=== PATIENT | female | born 1945 | race Caucasian/White ===

== ENCOUNTER 2018-08-23 09:23 | Day surgery (SDC) | payer MEDICARE, OTHER ==
[2018-08-23] MEDS: PHENYLEPHRINE 2.5% OPHTH SOL 2ML OS (10:19)
[2018-08-23] MEDS: OFLOXACIN 0.3 % (OCUFLOX) OPTH SOL 5ML OS (10:19)
[2018-08-23] MEDS: TROPICAMIDE 1% OPHTH SOLN 2ML OS (10:19)
[2018-08-23] MEDS: PROPARACAINE 0.5% OPHTH SOL 15ML OS (10:19)
[2018-08-23] MEDS ORDERED: MIDAZOLAM INJ 2 MG/2 ML VIAL (J2250) As Ordered (11:23)
[2018-08-23] MEDS ORDERED: fentaNYL 100 MCG/2 ML INJECTION (J3010) As Ordered (11:23)
[2018-08-23] MEDS: LIDOCAINE 0.75%/EPINEPHRINE 0.025% IN BSS 1ML SYR INTRACAMERAL (OR ONLY) As Ordered (11:44)
[2018-08-23] MEDS: POVIDONE-IODINE 5% OPHTH PREP SOL 30ML As Ordered (11:44)
[2018-08-23] MEDS: BALANCED SALT IRRIGATION SOLUTION 500ML BAG (FOR OR EYE MACHINE) As Ordered (11:44)
[2018-08-23] MEDS: DUOVISC (0.50ML VISCOAT/0.55ML PROVISC) OPHTH KIT As Ordered (11:44)
[2018-08-23] MEDS: CEFUROXIME 1MG/0.1ML INTRACAMERAL INJ As Ordered (11:45)
== END 2018-08-23 12:25 | disposition home or self-care (01) ==
LOC: M SDC 09:23
DX: H25.12 Age-related nuclear cataract, left eye (principal); E78.00 Pure hypercholesterolemia, unspecified; K21.9 Gastro-esophageal reflux disease without esophagitis; R06.02 Shortness of breath; F41.9 Anxiety disorder, unspecified; E66.9 Obesity, unspecified; Z68.36 Body mass index [BMI] 36.0-36.9, adult; Z88.0 Allergy status to penicillin; Z88.2 Allergy status to sulfonamides; Z88.5 Allergy status to narcotic agent; Z88.6 Allergy status to analgesic agent; Z79.899 Other long term (current) drug therapy; Z78.0 Asymptomatic menopausal state; Z98.51 Tubal ligation status
CPT/HCPCS: 66984

== ENCOUNTER 2018-08-30 10:17 | Day surgery (SDC) | payer MEDICARE, OTHER ==
[~2018-08-30 10:17] MED LIST: MIDAZOLAM INJ 2 MG/2 ML VIAL (J2250) As Ordered; fentaNYL 100 MCG/2 ML INJECTION (J3010) As Ordered
[2018-08-30] MEDS: PROPARACAINE 0.5% OPHTH SOL 15ML OD (10:43)
[2018-08-30] MEDS: PHENYLEPHRINE 2.5% OPHTH SOL 2ML OD (10:43)
[2018-08-30] MEDS: OFLOXACIN 0.3 % (OCUFLOX) OPTH SOL 5ML OD (10:43)
[2018-08-30] MEDS: TROPICAMIDE 1% OPHTH SOLN 2ML OD (10:43)
[2018-08-30] MEDS: POVIDONE-IODINE 5% OPHTH PREP SOL 30ML As Ordered (12:33)
[2018-08-30] MEDS: BALANCED SALT IRRIGATION SOLUTION 500ML BAG (FOR OR EYE MACHINE) As Ordered (12:39)
[2018-08-30] MEDS: LIDOCAINE 0.75%/EPINEPHRINE 0.025% IN BSS 1ML SYR INTRACAMERAL (OR ONLY) As Ordered (12:39)
[2018-08-30] MEDS: DUOVISC (0.50ML VISCOAT/0.55ML PROVISC) OPHTH KIT As Ordered (12:39)
[2018-08-30] MEDS ORDERED: ONDANSETRON 4MG/2ML VIAL (J2405) IV (13:30)
== END 2018-08-30 13:25 | disposition home or self-care (01) ==
LOC: M SDC 10:17
DX: H25.11 Age-related nuclear cataract, right eye (principal); E78.00 Pure hypercholesterolemia, unspecified; K21.9 Gastro-esophageal reflux disease without esophagitis; R06.02 Shortness of breath; F41.9 Anxiety disorder, unspecified; Z88.0 Allergy status to penicillin; Z88.2 Allergy status to sulfonamides; Z88.5 Allergy status to narcotic agent; Z88.6 Allergy status to analgesic agent; Z79.899 Other long term (current) drug therapy; Z79.82 Long term (current) use of aspirin; Z78.0 Asymptomatic menopausal state; Z98.51 Tubal ligation status
CPT/HCPCS: 66984

== ENCOUNTER → 2022-07-31 | Outpatient (REF) | payer OTHER ==
[~2022-07-31] MED LIST changes: +ASPI81TA26 PO; +CALC500T49 PO; +COQ-30CA2 PO; +ESCI5SOL3 PO; -MIDAZOLAM INJ 2 MG/2 ML VIAL (J2250) As Ordered; +NEXI40CA PO; +PRAV10TA3 PO; +VITA100067 PO; +VITA100T51 PO; -fentaNYL 100 MCG/2 ML INJECTION (J3010) As Ordered
== END ==
LOC: M LAB REF 11:03
PROVIDERS: ATTEND Internal Medicine
DX: R79.9 Abnormal finding of blood chemistry, unspecified (principal)